=== PATIENT | female | born 2000 | race Caucasian/White ===

== ENCOUNTER 2024-11-10 10:01 | Emergency (ER) | payer SELFPAY ==
[2024-11-10 10:04] VITALS: BP 129/87
--- NOTE | 2024-11-10 11:17 | ED.GENMED ---
History of Present Illness
General
Chief Complaint: Blood and Body Fluid Exposure
Time Seen by Provider: 11/10/24 10:32
History of Present Illness
History of Present Illness:
24-year-old female without significant past medical history presenting for needlestick. 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
Does initially note that she had some bleeding, clean the area. Patient's status is unknown, however is not believed to have any hepatitis or HIV. Denies additional acute medical complaints. Denies chest pain, difficulty breathing, fever. Denies
additional complaints
Phy Exam
Physical Exam
Physical Exam:
General: Well-appearing, no clinical signs of dehydration, nontoxic and in no acute distress
HEENT: protecting airway
Neck: appears supple
CV: Normal heart rate
Resp: No accessory muscle use, no increased work of breathing
Abd: no distension
Extremities: No deformities, no swelling
Neuro: alert, no focal neurologic deficit
: deferred
Rectal: deferred
Psych: Normal affect
Skin: Intact
Course
Orders/Labs/Results
Orders:
Orders
11/10/24 10:08
Pt has had a significant HIV exposure? Routine
HIV Exposure is significant?: Yes
11/10/24 10:13
HIV Combo Urgent
Hepatitis B Surface Antibody Urgent
Hepatitis B Surface Antigen Urgent
Hepatitis C Antibody Urgent
Vital Signs
Initial and Last Documented VS:
Initial Vital Signs
Temp Pulse Resp BP Pulse Ox
98.3 F 102 18 129/87 100
11/10/24 10:04 11/10/24 10:04 11/10/24 10:04 11/10/24 10:04 11/10/24 10:04
Last Documented Vital Signs
Temp Pulse Resp BP Pulse Ox
98.3 F 102 18 129/87 100
11/10/24 10:04 11/10/24 10:04 11/10/24 10:04 11/10/24 10:04 11/10/24 10:04
MDM/Problems Addressed
MDM/Problems Addressed:
24-year-old female presenting for accidental needlestick, occupational exposure. Vital signs are normal.
On exam, patient resting comfortably, no acute distress. No signs of trauma to the thumb, which is area of needlestick. 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 Will send
appropriate laboratory analysis. Patient offered postexposure prophylaxis, declined, which I feel is reasonable given circumstances. She will follow-up with occupational health. Feel stable for discharge.
*Pulse Oximetry
SaO2: 100
Oxygen Mode of Delivery: Room air
Patient hypoxic: no
*Critical Care Note
Total Time (30-74mins, 75-104mins- exclusive of procedures): Not Applicable
ED Attending Note
-
Portions of this chart may have been created with voice recognition software.� Occasional wrong word or��sound alike� substitutions may have occurred due to the inherent limitations of voice recognition software.
Discharge Plan
Departure
Referrals:
Gianfranco Willams MD [Family Provider, [facility]]
Stand Alone Forms: Bl/Fluid Consent/Declination, Blood Body/Fluid Exposure
Interventions
Interventions:
*Risk Screen - Suicide Last Done: 11/10/24 10:04
*General Assessment Last Done: 11/10/24 10:04
*Neglect/Abuse Screening Last Done: 11/10/24 10:04
Discharge Date and Time
Print Language: INDONESIAN
[2024-11-10 19:23] LABS: Hepatitis B Surface Antigen Negative (Negative)
[2024-11-10 19:40] LABS: Hepatitis C Antibody Negative (Negative)
== END 2024-11-10 11:38 | disposition home or self-care (01) ==
LOC: EMR 10:01
PROVIDERS: EMERGENCY PHYSICIAN Student in an Organized Health Care Education/Training Program; FAMILY PHYSICIAN Family Medicine
DX: Z77.21 Contact with and (suspected) exposure to potentially hazardous body fluids (principal); Y99.0 Civilian activity done for income or pay
CPT/HCPCS: 99282; 86706; 86803; 87340; 87389